=== PATIENT | male | born 1980 | race Caucasian/White ===

== ENCOUNTER 2019-02-05 22:19 | Emergency (ER) | payer SELFPAY ==
[~2019-02-05] VITALS: Ht 188 cm; Wt 120.2 kg
[2019-02-05 22:40] VITALS: BP 200/101
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
[2019-02-05] MEDS ORDERED: NEOMY/BACITR/POLYMYXIN OINT PACKET. TP ONE (22:45)
== END 2019-02-05 22:46 | disposition home or self-care (01) ==
LOC: ER 22:19
DX: H10.213 Acute toxic conjunctivitis, bilateral (principal); F10.229 Alcohol dependence with intoxication, unspecified; Y90.9 Presence of alcohol in blood, level not specified; R45.1 Restlessness and agitation; S50.311A Abrasion of right elbow, initial encounter; X58.XXXA Exposure to other specified factors, initial encounter; Y93.89 Activity, other specified; Y92.89 Other specified places as the place of occurrence of the external cause; Y99.8 Other external cause status
CPT/HCPCS: 99283